=== PATIENT | male | born 1970 | race Caucasian/White ===

== ENCOUNTER 2020-05-08 15:05 | Emergency (ER) | payer OTHER | END 2020-05-08 16:24 | disposition home or self-care (01) | LOC: JVIRT 15:05 | DX: Z11.59 Encounter for screening for other viral diseases (principal) | CPT/HCPCS: C9803; Q3014-GT; U0003 ==

== ENCOUNTER 2020-07-18 12:40 | Emergency (ER) | payer OTHER | END 2020-07-18 12:48 | disposition home or self-care (01) | LOC: JVIRT 12:40 | DX: U07.1 COVID-19 (principal) | CPT/HCPCS: C9803; G2012-GT; U0003 ==